=== PATIENT | female | born 2000 | race Two or more races ===

== ENCOUNTER 2022-06-18 17:25 | Emergency (ER) | payer OTHER ==
[~2022-06-18] VITALS: Ht 162.6 cm; Wt 68.8 kg
[2022-06-18] MEDS ORDERED: IBUPROFEN 800 MG TAB PO ONE (20:00)
[2022-06-18 21:26] VITALS: BP 111/67
[2022-06-18] MEDS ORDERED: IBUP800T27 PO (22:01)
[2022-06-18] MEDS ORDERED: DICL1GEL50 TD (22:04)
== END 2022-06-18 23:02 | disposition home or self-care (01) ==
LOC: ER 17:32
DX: S63.501A Unspecified sprain of right wrist, initial encounter (principal); Z79.1 Long term (current) use of non-steroidal anti-inflammatories (NSAID); Z79.899 Other long term (current) drug therapy; X58.XXXA Exposure to other specified factors, initial encounter; Y93.89 Activity, other specified; Y92.89 Other specified places as the place of occurrence of the external cause; Y99.8 Other external cause status
CPT/HCPCS: 73090; 73110; 73120